=== PATIENT | female | born 1985 ===

== ENCOUNTER 2017-11-03 06:45 | Day surgery (SDC) | payer OTHER | END 2017-11-03 16:30 | disposition home or self-care (01) | LOC: CIR.AMB 06:45 | DX: N85.01 Benign endometrial hyperplasia (principal) ==

== ENCOUNTER 2018-08-01 12:04 | Outpatient (CLI) | payer OTHER | END 2018-08-01 12:10 | disposition home or self-care (01) | LOC: RX STUDY 12:04 | DX: N70.11 Chronic salpingitis (principal); N84.0 Polyp of corpus uteri ==

== ENCOUNTER 2019-01-11 10:52 | Outpatient (CLI) | payer OTHER | END 2019-01-11 11:41 | disposition home or self-care (01) | LOC: RX STUDY 10:52 | DX: N84.0 Polyp of corpus uteri (principal); N70.11 Chronic salpingitis ==

== ENCOUNTER 2021-02-06 09:46 | Outpatient (CLI) | payer OTHER | END 2021-02-06 09:51 | disposition home or self-care (01) | LOC: RX STUDY 09:46 | PROVIDERS: ATTEND Obstetrics & Gynecology Gynecology | DX: N70.11 Chronic salpingitis (principal); N84.0 Polyp of corpus uteri; N89.8 Other specified noninflammatory disorders of vagina ==